=== PATIENT | female | born 1975 | race Native Hawaiian/Other Pacific Islander ===

== ENCOUNTER 2020-06-24 13:10 | Outpatient (CLI) | payer BC, OTHER | END 2020-06-24 21:02 | disposition home or self-care (01) | LOC: LAB 13:10 | PROVIDERS: ATTEND Family Medicine | DX: Z20.828 Contact with and (suspected) exposure to other viral communicable diseases (principal); R06.89 Other abnormalities of breathing; J01.90 Acute sinusitis, unspecified | CPT/HCPCS: 87635; G2023; U0003 ==

== ENCOUNTER 2022-09-04 21:56 | Emergency (ER) | payer BC, OTHER ==
[~2022-09-04] VITALS: Ht 149.9 cm; Wt 83.9 kg
[2022-09-04 22:00] VITALS: BP 113/83; TEMP 98.4
== END 2022-09-04 23:20 | disposition home or self-care (01) ==
LOC: ED 21:56
DX: S50.861A Insect bite (nonvenomous) of right forearm, initial encounter (principal); L03.113 Cellulitis of right upper limb; W57.XXXD Bitten or stung by nonvenomous insect and other nonvenomous arthropods, subsequent encounter; Y92.89 Other specified places as the place of occurrence of the external cause
CPT/HCPCS: 96372; 99283; J0696